=== PATIENT | male | born 1950 | race Caucasian/White ===

== ENCOUNTER 2018-06-13 15:25 | Observation (INO) | payer OTHER ==
[2018-06-13] MEDS ORDERED: ALBUTEROL 2.5 MG/3 ML NEB SOL ONE (15:44)
[2018-06-13] MEDS ORDERED: IPRATROPIUM BROM 0.5MG/2.5ML ONE (15:44)
[2018-06-13 15:46] LABS: Absolute Lymphocytes (CBC) 1.8 K/uL (0.7-4.9); Absolute Monocytes 0.8 K/uL (0.1-1.3); Absolute Neutrophil 4.2 K/uL (1.8-8.0); Basophils % 0.7 % (0-1.3); Eosinophils % 10.3 % (0-4.4); Hematocrit 42.7 % (39.6-49.0); Lymphocytes % 23.8 % (15.3-44.8); MPV 10.2 fL (7.6-11.3); Monocytes % 10.3 % (3.3-12.3); RBC Red Blood Cell Count 4.71 M/uL (4.33-5.43)
[2018-06-13 15:50] LABS: Protime INR 1.03
--- NOTE | 2018-06-13 16:05 | RAD REPORT ---
EXAM DESCRIPTION: CT - Head Brain Wo Cont - 06/13/2018 3:51 pm CLINICAL HISTORY: SYNCOPE Drowsiness, syncope COMPARISON: No comparisons TECHNIQUE: All CT scans are performed using dose optimization technique as appropriate and may inclu de automated exposure control or mA/KV adjustment according to patient size. FINDINGS: No intracranial hemorrhage, hydrocephalus or extra-axial fluid collection.No areas of brai n edema or evidence of midline shift. The paranasal sinuses and mastoids are clear. The calvarium is intact. IMPRESSION: No acute intracranial abnormality.
[2018-06-13 16:08] LABS: ALT/SGPT 28 U/L (12-78); AST/SGOT 15 U/L (15-37); Albumin 3.9 g/dL (3.4-5.0); Alkaline Phosphatase 63 U/L (45-117); BUN Blood Urea Nitrogen 20 mg/dL (7-18); Bicarbonate 28 mmol/L (21-32); Bilirubin Direct 0.1 mg/dL (0-0.2); Bilirubin Total 0.6 mg/dL (0.2-1.0); Glucose Level 96 mg/dL (74-106); Magnesium 2.2 mg/dL (1.8-2.4); NT PRO-BNP 124 pg/mL (<125); Potassium 3.8 mmol/L (3.5-5.1); Protein, Total 7.2 g/dL (6.4-8.2); Sodium Level 143 mmol/L (136-145); Troponin (Emerg Dept Use Only) < 0.02 ng/mL (0.0-0.045)
--- NOTE | 2018-06-13 16:19 | RAD REPORT ---
EXAM DESCRIPTION: RAD - Chest Single View - 06/13/2018 4:03 pm CLINICAL HISTORY: syncope Chest pain. COMPARISON: No comparisons FINDINGS: Portable technique limits examination quality. The lungs are grossly clear. The heart is normal in size. No displaced fractures. IMPRESSION: No acute intrathoracic process suspected.
--- NOTE | 2018-06-13 17:07 | EKG ---
Test Date: 2018-06-13 Test Time: 15:57:31 Hay Stacker: KARMA MEASUREMENT RESULTS: Intervals: Rate: 76 CO: 142 QRSD: 90 QT: 402 QTc: 452 [place]: P: 34 CO: 142 QRS: -21 T: 62 INTERPRETIVE STATEMENTS: Normal sinus rhythm Nonspecific ST and T wave abnormality Abnormal ECG No previous ECG available for comparison Electronically Signed On 06-13-18 17:06:40 HELPER/DRIVER by Pete Hyde
[2018-06-13] MEDS ORDERED: HYDROCODONE/CHLORPHEN 5 ML/OSYR ONE (18:21)
[2018-06-13] MEDS ORDERED: NA CHLORIDE 0.9% 500 ML ONE (18:21)
[2018-06-13] MEDS ORDERED: METHYLPREDNISOLONE 125 MG INJ ONE (18:21)
--- NOTE | 2018-06-13 18:57 | EDPHYS ---
Physician Documentation [facility] Name: Sammy Baez Age: 67 yrs Sex: Male : 1950 Arrival Date: 06/13/2018 Time: 15:26 Bed 4 Private MD: ED Physician Marley Calderon HPI: 06/13 15:35 This 67 yrs old Male presents to ER via EMS with complaints of Syncope. cp 15:35 The patient has experienced syncope, collapsed, lost consciousness. Duration: This was cp a single episode. Associated injury: The patient did not suffer any apparent associated injury. Associated signs and symptoms: Pertinent positives: cough. Current symptoms: Currently, the patient is not experiencing any symptoms, the patient feels back to baseline. 15:35 [facility]. Patient then reports cp waking up seated in chair. Historical: - Allergies: 15:36 No Known Allergies; aj - Home Meds: 15:36 Albuterol Inhl [Active]; allopurinol 100 mg Oral tab 1 tab once daily [Active]; aj budesonide 3 mg oral CECX 2 caps once daily [Active]; cetirizine 10 mg oral tab 1 tab once daily [Active]; clobetasol 0.05 % Topical crea 2 times per day [Active]; desonide 0.05 % Topical lotn 3 times per day [Active]; finasteride 5 mg oral tab 1 tab once daily [Active]; fluticasone inhalation inhalation [Active]; losartan 50 mg oral tab 1 tab once daily [Active]; montelukast 10 mg oral tab 1 tab once daily [Active]; omeprazole 20 mg Oral cpDR 1 cap once daily [Active]; prazosin 2 mg Oral cap 2 caps nightly [Active]; ropinirole 1 mg oral tab 1 tab [Active]; simvastatin 20 mg Oral tab 1 tab once daily [Active]; tamsulosin 0.4 mg oral cp24 1 cap once daily [Active]; terbinafine HCl 1 % topical crea once daily [Active]; trazodone 100 mg Oral tab nightly [Active]; venlafaxine 75 mg oral tr24 2 tabs twice a day [Active]; aspirin 81 mg Oral chew 1 tab once daily [Active]; - PMHx: 15:36 Asthma; GERD; Hypertension; Gout; BPH; Restless Legs; Hyperlipidemia; Arthritis; Sleep aj Apnea; - PSHx: 15:36 Hernia repair; Carpal Tunnel Repair; aj - Immunization history:: Adult Immunizations up to date. - Social history:: Smoking status: Patient/guardian denies using tobacco. - Ebola Screening: : Patient negative for fever greater than or equal to 101.5 degrees Fahrenheit, and additional compatible Ebola Virus Disease symptoms Patient denies exposure to infectious person Patient denies travel to an Ebola-affected area in the 21 days before illness onset No symptoms or risks identified at this time. ROS: 15:40 Constitutional: Negative for body aches, fever, poor PO intake, weight loss. cp 15:40 Eyes: Negative for injury, pain, redness, and discharge. cp 15:40 ENT: Negative for drainage from ear(s), ear pain, sore throat, difficulty swallowing, difficulty handling secretions. 15:40 Cardiovascular: Negative for chest pain, edema, palpitations. 15:40 Respiratory: Positive for cough, wheezing, expiratory, Negative for hemoptysis, shortness of breath. 15:40 Abdomen/GI: Negative for abdominal pain, nausea, vomiting, and diarrhea, constipation, black/tarry stool, rectal bleeding. 15:40 Back: Negative for pain at rest, pain with movement. 15:40 Skin: Negative for cellulitis, diaphoresis, rash. 15:40 Neuro: Positive for headache, syncope, Negative for altered mental status, dizziness, weakness. 15:40 All other systems are negative. Exam: 15:45 Constitutional: The patient appears in no acute distress, alert, awake, cp non-diaphoretic, non-toxic, well developed, well nourished. 15:45 Head/Face: Normocephalic, atraumatic. Eyes: Pupils equal round and reactive to light, cp extra-ocular motions intact. Lids and lashes normal. Conjunctiva and sclera are non-icteric and not injected. Cornea within normal limits. Periorbital areas with no swelling, redness, or edema. ENT: Nares patent. No nasal discharge, no septal abnormalities noted. Tympanic membranes are normal and external auditory canals are clear. Oropharynx with no redness, swelling, or masses, exudates, or evidence of obstruction, uvula midline. Mucous membranes moist. Neck: Trachea midline, no thyromegaly or masses palpated, and no cervical lymphadenopathy. Supple, full range of motion without nuchal rigidity, or vertebral point tenderness. No Meningismus. Chest/axilla: Normal chest wall appearance and motion. Nontender with no deformity. No lesions are appreciated. 15:45 Cardiovascular: Rate: normal, Rhythm: regular, Pulses: Pulses are 2+ in right radial artery and left radial artery. Heart sounds: murmur, not appreciated, rub, not appreciated, gallop, not appreciated, Edema: is not appreciated, JVD: is not appreciated. 15:45 Respiratory: the patient does not display signs of respiratory distress, Respirations: normal, no use of accessory muscles, no retractions, no splinting, no tachypnea, Breath sounds: decreased breath sounds, are not appreciated, stridor, is not appreciated, wheezing: expiratory that is mild, is heard diffusely. 15:45 Abdomen/GI: Inspection: abdomen appears normal, Bowel sounds: active, all quadrants, Palpation: abdomen is soft and non-tender, in all quadrants. 15:45 Back: pain, is absent, ROM is normal. cp 15:45 Skin: cellulitis, is not appreciated, no rash present. cp 15:45 Neuro: Orientation: to person, place \T\ time. Mentation: is normal, Cerebellar function: is grossly normal, Motor: moves all fours, strength is normal, Sensation: is normal. 16:08 ECG was reviewed by the Attending Physician. cp Vital Signs: 15:36 BP 151 / 83; Pulse 71; Resp 15; Temp 98.0(O); Pulse Ox 97% on R/A; Weight 104.33 kg; aj Height 5 ft. 9 in. (175.26 cm); 16:46 BP 146 / 74; Pulse 75; Resp 24; Pulse Ox 97% ; aj 17:39 BP 158 / 73 Supine; Pulse 73; aj 17:41 BP 159 / 80 Sitting; Pulse 79; aj 17:43 BP 156 / 84 Standing; Pulse 81; aj 19:33 BP 152 / 75; Pulse 75; Resp 20; Pulse Ox 96% ; Pain 0/10; ao 20:40 BP 147 / 77; Pulse 77; Resp 24; Pulse Ox 94% on R/A; Pain 0/10; ao 15:36 Body Mass Index 33.96 (104.33 kg, 175.26 cm) aj MDM: 15:27 Patient medically screened. 16:00 Differential Diagnosis: cardiac arrhythmia, cerebrovascular accident, drug effect, GI cp bleed, seizure, transient ischemic attack, vasovagal episode. 16:45 Data reviewed: vital signs, nurses notes, lab test result(s), EKG, radiologic studies, cp plain films. 18:45 Test interpretation: by ED physician or midlevel provider: ECG, plain radiologic cp studies. 18:55 Physician consultation: Marley Day MD was called at 18:52, was contacted at 18:52, cp regarding admission, to the telemetry unit. patient's condition. 06/13 15:32 Order name: Basic Metabolic Panel; Complete Time: 16:16 06/13 16:16 Interpretation: Normal except: CL 108; BUN 20; GFR 65. 06/13 15:32 Order name: CBC with Diff; Complete Time: 16:02 06/13 16:02 Interpretation: Normal except: EOSINOPHIL % 10.3; EOSA 0.8. 06/13 15:32 Order name: LFT's; Complete Time: 16:16 06/13 15:32 Order name: Magnesium; Complete Time: 16:16 06/13 15:32 Order name: NT PRO-BNP; Complete Time: 16:16 06/13 15:32 Order name: PT-INR; Complete Time: 16:16 06/13 15:32 Order name: Troponin (emerg Dept Use Only); Complete Time: 16:16 06/13 16:17 Interpretation: TROPED < 0.02; Reviewed. 06/13 20:16 Order name: CBC with Automated Diff [facility] 06/13 20:16 Order name: CBC with Automated Diff [facility] 06/13 20:16 Order name: Comprehensive Metabolic Panel [facility] 06/13 20:16 Order name: Comprehensive Metabolic Panel [facility] 06/13 20:16 Order name: Lipid Profile [facility] 06/13 20:16 Order name: Lipid Profile [facility] 06/13 20:16 Order name: Troponin I [facility] 06/13 15:32 Order name: Orthostatics; Complete Time: 17:46 06/13 15:32 Order name: CT Head Brain wo Cont; Complete Time: 16:16 06/13 16:17 Interpretation: Report reviewed. 06/13 15:32 Order name: XRAY Chest (1 view); Complete Time: 16:31 cp 06/13 16:31 Interpretation: Report review. 06/13 15:32 Order name: EKG; Complete Time: 15:33 cp 06/13 15:32 Order name: Cardiac monitoring; Complete Time: 15:51 cp 06/13 15:32 Order name: EKG - Nurse/Tech; Complete Time: 15:51 cp 06/13 20:16 Order name: CONS Pharmacy Consult [facility] 06/13 20:16 Order name: Heart Healthy [facility] 06/13 20:16 Order name: Troponin I [facility] 06/13 20:16 Order name: Troponin I [facility] 06/13 20:17 Order name: Echo with Doppler [facility] 06/13 20:17 Order name: Carotid Artery Bilateral [facility] 06/13 15:32 Order name: IV Saline Lock; Complete Time: 15:45 cp 06/13 15:32 Order name: Labs collected and sent; Complete Time: 15:45 06/13 15:32 Order name: O2 Per Protocol; Complete Time: 15:45 06/13 15:32 Order name: O2 Sat Monitoring; Complete Time: 15:45 cp EC:08 Rate is 76 beats/min. Rhythm is regular. TX interval is normal. QRS interval is normal. cp QT interval is normal. Interpreted by me. Reviewed by me. Administered Medications: 15:40 Drug: Albuterol - atroVENT (3:1) (2.5 mg - 0.5 mg) 3 ml Route: Nebulizer; jl7 17:45 Follow up: Response: No adverse reaction; Wheezing diminished aj 19:30 Follow up: Response: No adverse reaction ao 18:15 Drug: SOLU-Medrol 125 mg Route: IVP; Site: left antecubital; aj 19:30 Follow up: Response: No adverse reaction ao 18:15 Drug: Tussionex Pennkinetic ER 5 ml Route: PO; aj 19:30 Follow up: Response: No adverse reaction ao 18:16 Drug: NS 0.9% 500 ml Route: IV; Rate: bolus; Site: left antecubital; aj 19:30 Follow up: IV Status: Completed infusion; IV Intake: 500ml ao Point of Care Testing: Blood Glucose: 15:36 Blood Glucose: 99 mg/dL; aj Ranges: Critical Glucose Levels:Adult <50 mg/dl or >400 mg/dl <40 mg/dl or >180 mg/dl Disposition: 06/14 18:47 Co-signature as Attending Physician, Marley Calderon MD. ma2 Disposition: 06/13/18 18:56 Hospitalization ordered by Marley Day for Observation. Preliminary diagnosis are Syncope and collapse, Cough. - Bed requested for Telemetry/MedSurg (observation). - Status is Observation. ao - Condition is Stable. - Problem is new. - Symptoms have improved. UTI on Admission? No Signatures: Dispatcher [employer] EDMS Liv Fletcher RN RN Kole Chacko PA PA cp Garcia, Cindy, RN RN cg Jaime High RN RN Jessica Colon RN RN jl7 Marley Calderon MD MD ma2 Corrections: (The following items were deleted from the chart) 06/13 16:02 16:02 Normal except: EOSINOPHIL % 10.3. cp cp 20:38 18:56 Hospitalization Ordered by Marley Day MD for Observation. Preliminary cg diagnosis is Syncope and collapse; Cough. Bed requested for Telemetry/MedSurg (observation). Status is Observation. Condition is Stable. Problem is new. Symptoms have improved. UTI on Admission? No. cp 21:36 20:38 06/13/2018 18:56 Hospitalization Ordered by Marley Day MD for Observation. ao Preliminary diagnosis is Syncope and collapse; Cough. Bed requested for Telemetry/MedSurg (observation). Status is Observation. Condition is Stable. Problem is new. Symptoms have improved. UTI on Admission? No. cg
--- NOTE | 2018-06-13 18:57 | ER ---
Nurse's Notes [facility] Name: Sammy Baez Age: 67 yrs Sex: Male : 1950 Arrival Date: 06/13/2018 Time: 15:26 Bed 4 Private MD: Diagnosis: Syncope and collapse;Cough Presentation: 06/13 15:26 Presenting complaint: Patient states: Reports syncopal episode today while coughing. aj Sent from [place]. Transition of care: patient was not received from another setting of care. Onset of symptoms was June 13, 2018. Risk Assessment: Do you want to hurt yourself or someone else? Patient reports no desire to harm self or others. Initial Sepsis Screen: Does the patient meet any 2 criteria? No. Patient's initial sepsis screen is negative. Does the patient have a suspected source of infection? No. Patient's initial sepsis screen is negative. Care prior to arrival: None. 15:26 Method Of Arrival: EMS: [facility] 15:26 Acuity: ANNA MARIE 3 aj Triage Assessment: 15:36 General: Appears in no apparent distress. comfortable, Behavior is calm, cooperative, aj appropriate for age. Pain: Denies pain. Neuro: Level of Consciousness is awake, alert, obeys commands, Oriented to person, place, time, situation, Appropriate for age Reports a syncopal episode. Respiratory: Reports cough that is Airway is patent Respiratory effort is even, unlabored, Respiratory pattern is regular, symmetrical, Breath sounds with wheezes bilaterally. Derm: Skin is intact, is healthy with good turgor, Skin is pink, warm \T\ dry. normal. Historical: - Allergies: 15:36 No Known Allergies; aj - Home Meds: 15:36 Albuterol Inhl [Active]; allopurinol 100 mg Oral tab 1 tab once daily [Active]; aj budesonide 3 mg oral CECX 2 caps once daily [Active]; cetirizine 10 mg oral tab 1 tab once daily [Active]; clobetasol 0.05 % Topical crea 2 times per day [Active]; desonide 0.05 % Topical lotn 3 times per day [Active]; finasteride 5 mg oral tab 1 tab once daily [Active]; fluticasone inhalation inhalation [Active]; losartan 50 mg oral tab 1 tab once daily [Active]; montelukast 10 mg oral tab 1 tab once daily [Active]; omeprazole 20 mg Oral cpDR 1 cap once daily [Active]; prazosin 2 mg Oral cap 2 caps nightly [Active]; ropinirole 1 mg oral tab 1 tab [Active]; simvastatin 20 mg Oral tab 1 tab once daily [Active]; tamsulosin 0.4 mg oral cp24 1 cap once daily [Active]; terbinafine HCl 1 % topical crea once daily [Active]; trazodone 100 mg Oral tab nightly [Active]; venlafaxine 75 mg oral tr24 2 tabs twice a day [Active]; aspirin 81 mg Oral chew 1 tab once daily [Active]; - PMHx: 15:36 Asthma; GERD; Hypertension; Gout; BPH; Restless Legs; Hyperlipidemia; Arthritis; Sleep aj Apnea; - PSHx: 15:36 Hernia repair; Carpal Tunnel Repair; aj - Immunization history:: Adult Immunizations up to date. - Social history:: Smoking status: Patient/guardian denies using tobacco. - Ebola Screening: : Patient negative for fever greater than or equal to 101.5 degrees Fahrenheit, and additional compatible Ebola Virus Disease symptoms Patient denies exposure to infectious person Patient denies travel to an Ebola-affected area in the 21 days before illness onset No symptoms or risks identified at this time. Screenin:47 Abuse screen: Denies threats or abuse. Denies injuries from another. Nutritional aj screening: No deficits noted. Tuberculosis screening: No symptoms or risk factors identified. Fall Risk None identified. Assessment: 15:38 Reassessment: See triage. aj 16:47 Reassessment: Patient appears in no apparent distress at this time. No changes from aj previously documented assessment. Patient and/or family updated on plan of care and expected duration. Pain level reassessed. Patient is alert, oriented x 3, equal unlabored respirations, skin warm/dry/pink. Patient states feeling better. Patient states symptoms have improved. 17:46 Reassessment: Patient appears in no apparent distress at this time. No changes from aj previously documented assessment. Patient and/or family updated on plan of care and expected duration. Pain level reassessed. Patient is alert, oriented x 3, equal unlabored respirations, skin warm/dry/pink. Patient denies pain at this time. Patient states feeling better. Patient states symptoms have improved. Neuro: No deficits noted. Cardiovascular: No deficits noted. 19:25 General: Appears in no apparent distress. comfortable, Behavior is calm, cooperative, ao appropriate for age. 21:33 Neuro: Level of Consciousness is awake, alert, Oriented to person, place, time, ao situation, none. Cardiovascular: Rhythm is regular. Vital Signs: 15:36 BP 151 / 83; Pulse 71; Resp 15; Temp 98.0(O); Pulse Ox 97% on R/A; Weight 104.33 kg; aj Height 5 ft. 9 in. (175.26 cm); 16:46 BP 146 / 74; Pulse 75; Resp 24; Pulse Ox 97% ; aj 17:39 BP 158 / 73 Supine; Pulse 73; aj 17:41 BP 159 / 80 Sitting; Pulse 79; aj 17:43 BP 156 / 84 Standing; Pulse 81; aj 19:33 BP 152 / 75; Pulse 75; Resp 20; Pulse Ox 96% ; Pain 0/10; ao 20:40 BP 147 / 77; Pulse 77; Resp 24; Pulse Ox 94% on R/A; Pain 0/10; ao 15:36 Body Mass Index 33.96 (104.33 kg, 175.26 cm) aj ED Course: 15:26 Patient arrived in ED. aj 15:27 Kole Bernardo PA is PHCP. cp 15:27 Marley Calderon MD is Attending Physician. cp 15:28 Triage completed. aj 15:36 Arm band placed on left wrist. Patient placed in an exam room, on a stretcher, on teletypesetter monitor, on pulse oximetry. 15:45 Liv Fletcher, RN is Primary Nurse. aj 15:50 Bed in low position. Call light in reach. Side rails up X 1. Side rails up X2. Warm jp3 blanket given. Pillow given. quality assurance monitor chassis on. Pulse ox on. NIBP on. 15:51 CT completed. Patient tolerated procedure well. Patient moved to CT via stretcher. sj Patient moved back from CT. 15:51 CT Head Brain wo Cont In Process Unspecified. EDMS 16:03 XRAY Chest (1 view) In Process Unspecified. EDMS 16:18 EKG done, by technician terminal and repeater. reviewed by Kole SWANSON. dt2 16:50 attempted transfer to [facility], per pt request. bd 18:07 attempted transfer to [facility]. bd 18:56 Marley Day MD is Hospitalizing Provider. cp 18:56 attempted to call [facility] at [phone] ext [phone], no one answered the phone. bd 21:32 No provider procedures requiring assistance completed. Patient admitted, IV remains in ao place. Administered Medications: 15:40 Drug: Albuterol - atroVENT (3:1) (2.5 mg - 0.5 mg) 3 ml Route: Nebulizer; jl7 17:45 Follow up: Response: No adverse reaction; Wheezing diminished aj 19:30 Follow up: Response: No adverse reaction ao 18:15 Drug: SOLU-Medrol 125 mg Route: IVP; Site: left antecubital; aj 19:30 Follow up: Response: No adverse reaction ao 18:15 Drug: Tussionex Pennkinetic ER 5 ml Route: PO; aj 19:30 Follow up: Response: No adverse reaction ao 18:16 Drug: NS 0.9% 500 ml Route: IV; Rate: bolus; Site: left antecubital; aj 19:30 Follow up: IV Status: Completed infusion; IV Intake: 500ml ao Point of Care Testing: Blood Glucose: 15:36 Blood Glucose: 99 mg/dL; aj Ranges: Intake: 19:30 IV: 500ml; Total: 500ml. ao Outcome: 18:56 Decision to Hospitalize by Provider. cp 21:33 Admitted to Med/surg accompanied by tech, room 426, with chart, Report called to erika Guaman RN 21:33 Condition: stable 21:33 Instructed on the need for admit. 21:36 Patient left the ED. ao Signatures: Dispatcher [employer] EDMS Miya Noble Amanda RN Savita Donald Corey, PA PA cp Ortiz, Alex RN RN Jessica Colon RN RN Amy Zepeda Jacob jp3 Corrections: (The following items were deleted from the chart) 16:09 16:08 Bed in low position. Call light in reach. Side rails up X 1. Side rails up X2. [id number] 16:09 16:08 Warm blanket given. Pillow given. jp3 jp3 16:09 16:08 quality assurance monitor chassis on. Pulse ox on. NIBP on. jp3 jp3 21:36 21:33 Discharged to home ambulatory, ao ao
[2018-06-13] MEDS ORDERED: MORPHINE 2 MG/ML SYR IV PRN (20:13)
[2018-06-13] MEDS ORDERED: ACETAMINOPHEN 500 MG TAB PO PRN (20:13)
[2018-06-13] MEDS ORDERED: ONDANSETRON 4 MG/2 ML VIAL IV PRN (20:13)
[2018-06-13] MEDS: NA CHLORIDE 0.9% 1,000 ML IV SCH (21:00)
[2018-06-13] MEDS ORDERED: ATORVASTATIN 20 MG TAB PO SCH (21:00)
[2018-06-13] MEDS ORDERED: NA CHLORIDE 0.9% 1,000 ML ONE (21:27)
--- NOTE | 2018-06-13 22:12 | RAD REPORT ---
EXAM DESCRIPTION: US - CP - 06/13/2018 9:18 pm CLINICAL HISTORY: Syncope COMPARISON: None. TECHNIQUE: Real-time sonographic evaluation of both carotid systems was performed. Solo scale and Do ppler interrogation were performed with waveform tracing bilaterally. FINDINGS: Normal high resistance waveforms are noted in both external carotid arteries. The common c arotid arteries and internal carotid arteries show normal low resistance waveforms. No significant plaque formation is seen. Peak systolic and end diastolic velocity values and the ICA/ CCA ratios are in the non-hemodynamically significant range. Antegrade flow seen in both vertebral arteries. Velocity values and ratios were recorded and are retained in the patient's imaging records. IMPRESSION: No significant atherosclerotic changes noted. No evidence of a hemodynamically significant stenosis.
[2018-06-13 22:33] VITALS: O2SAT 94
[2018-06-13 22:40] VITALS: BMI 35.0
[2018-06-14] MEDS: GUAIFENESIN/CODEINE 5ML UCUP PO PRN ×2 (01:25→13:03)
[2018-06-14 04:18] LABS: Absolute Lymphocytes (CBC) 0.6 K/uL (0.7-4.9); Absolute Neutrophil 6.9 K/uL (1.8-8.0); Basophils % 2.8 % (0-1.3); Eosinophils % 0.3 % (0-4.4); Hematocrit 41.5 % (39.6-49.0); Lymphocytes % 7.7 % (15.3-44.8); Monocytes % 0.6 % (3.3-12.3); RBC Red Blood Cell Count 4.56 M/uL (4.33-5.43)
[2018-06-14 04:36] LABS: ALT/SGPT 30 U/L (12-78); AST/SGOT 16 U/L (15-37); Albumin 3.6 g/dL (3.4-5.0); Alkaline Phosphatase 57 U/L (45-117); BUN Blood Urea Nitrogen 23 mg/dL (7-18); Bicarbonate 26 mmol/L (21-32); Bilirubin Total 0.6 mg/dL (0.2-1.0); Glucose Level 188 mg/dL (74-106); HDL Cholesterol 51 mg/dL (40-60); LDL Cholesterol, Calculated 121 (<130); Potassium 4.6 mmol/L (3.5-5.1); Protein, Total 6.9 g/dL (6.4-8.2); Sodium Level 142 mmol/L (136-145); Troponin I < 0.02 ng/mL (0.0-0.045)
[2018-06-14 05:21] LABS: Blood Morphology Comment NOT SEEN (NOT SEEN); Platelet Estimate ADEQ
[2018-06-14] MEDS ORDERED: TRAZODONE 50 MG TABLET PO PRN (05:56)
[2018-06-14] MEDS: NA CHLORIDE 0.9% 1,000 ML IV SCH (07:00)
[2018-06-14] MEDS ORDERED: MORPHINE 4 MG/ML SYR IV PRN (07:13)
[2018-06-14 07:57] LABS: Urine Appearance CLEAR; Urine Bilirubin NEGATIVE (NEG); Urine Blood NEGATIVE (NEG); Urine Color YELLOW; Urine Glucose NEGATIVE (NEG); Urine Protein NEGATIVE (NEG); Urine Specific Gravity >=1.030 (1.005-1.030); Urine pH 6.5 (5.0-7.0)
[2018-06-14 07:58] LABS: Urine Microscopic Reflex NO UMIC
[2018-06-14] MEDS ORDERED: MONTELUKAST 10 MG TAB PO SCH (09:00)
[2018-06-14] MEDS ORDERED: HOME MED 1 EA UNK (Venlafaxine Hcl [Venlafaxine Hcl Er] 150 MG) PO SCH (09:00)
[2018-06-14] MEDS ORDERED: VENLAFAXINE HCL 75 MG TABLET PO SCH (09:00)
[2018-06-14] MEDS ORDERED: TAMSULOSIN 0.4 MG SR CAP PO SCH (09:00)
[2018-06-14] MEDS ORDERED: ASPIRIN EC 81 MG TAB PO SCH (09:00)
--- NOTE | 2018-06-14 09:42 | ECHO ---
HEIGHT: 5 ft 8 in WEIGHT: 230 lb 8 oz DATE OF STUDY: 06/14/[address]: Marley Day MD 2-DIMENSIONAL: YES M.MODE: YES DOPPLER: YES COLOR FLOW: YES TDS: NO PORTABLE: NO DEFINITY: NO BUBBLE STUDY: NO DIAGNOSIS: SYNCOPE CARDIAC HISTORY: CATHERIZATION: SURGERY: PROSTHETIC VALVE: PACEMAKER: MEASUREMENTS (cm) DIASTOLIC (NORMALS) SYSTOLIC (NORMALS) IVSd 1.2 (0.6-1.2) LA Diam (1.9-4.0) LVEF 70% LVIDd 4.5 (3.5-5.7) LVIDs 2.7 (2.0-3.5) %FS 39% LVPWd 1.3 (0.6-1.2) Ao Diam 3.2 (2.0-3.7) 2 DIMENSIONAL ASSESSMENT: RIGHT ATRIUM: NORMAL LEFT ATRIUM: NORMAL RIGHT VENTRICLE: NORMAL LEFT VENTRICLE: LEFT VENTRICULAR HYPERTROPHY TRICUSPID VALVE: NORMAL MITRAL VALVE: NORMAL PULMONIC VALVE: NORMAL AORTIC VALVE: MILD SCLEROSIS PERICARDIAL EFFUSION: NONE AORTIC ROOT: NORMAL LEFT VENTRICULAR WALL MOTION: NORMAL DOPPLER/COLOR FLOW: NO AORTIC STENOSIS. MILD AORTIC REGURGITATION. COMMENTS: NORMAL LEFT EJECTION FRACTION. MILD LEFT VENTRICULAR HYPERTROPHY. MILD AORTIC SCLEROSIS WITH NO AORTIC STENOSIS. MILD AORTIC REGURGITATION. TECHNOLOGIST: Bernabe JOSHI
--- NOTE | 2018-06-14 11:45 | RAD REPORT ---
EXAM DESCRIPTION: MRI - Brain Wo Cont - 06/14/2018 11:04 am CLINICAL HISTORY: Syncope COMPARISON: June 13, 2017 TECHNIQUE: Axial, sagittal, and coronal magnetic images of the brain were obtained. Contrast was not requested FINDINGS: A few small areas of increased signal are present within periventricular, deep and subcort ical white matter bilaterally Mild cerebellar tonsillar ectopia is present Diffusion-weighted/ADC mapping does not reveal evidence of acute infarction. The ventricles are normal caliber. An extra-axial fluid collection is not present Fluid within the sinuses/mastoids is not noted IMPRESSION: Mild signal within periventricular, deep and subcortical white matter probably represent ing ischemic changes secondary to small vessel disease Mild cerebellar tonsillar ectopia
--- NOTE | 2018-06-14 12:27 | P.HP ---
Certification for Inpatient Patient admitted to: Observation With expected LOS: <2 Midnights Patient will require the following post-hospital care: None Practitioner: I am a practitioner with admitting privileges, knowledge of patient current condition, hospital course, and medical plan of care. Services: Services provided to patient in accordance with Admission requirements found in Title 42 Section 412.3 of the Code of Federal Regulations Patient History Date of Service: 06/13/18 Reason for admission: SYNCOPE AND COLLAPSE History of Present Illness: PATIENT IS A 67-YEAR-OLD GENTLEMAN WHO CAME TO THE HOSPITAL WITH A SYNCOPAL EVENT. PATIENT WAS COUGHING AND BECAME SYNCOPAL AND COLLAPSE. PATIENT WAS BROUGHT INTO THE HOSPITAL FOR FURTHER EVALUATION. THIS HAS BEEN GOING ON FOR QUITE A WHILE. PATIENT HAS NOT HAD ANY WORKUP IN THE PAST FOR GUARDING THIS. THEY BROUGHT HIM INTO THE EMERGENCY ROOM AND A CT OF THE HEAD WAS NEGATIVE. NO SIGNS OF ANY ARRHYTHMIAS. PATIENT WILL NEED TO BE ADMITTED TO THE HOSPITAL FOR FURTHER EVALUATION. Allergies No Known Allergies Allergy (Unverified 06/13/18 21:01) Home Medications: Montelukast [Singulair] 10 mg PO DAILY 06/13/18 Omeprazole 20 mg PO DAILYPRN PRN 06/13/18 Simvastatin 20 mg PO DAILY 06/13/18 Tamsulosin HCl 0.4 mg PO DAILY 06/13/18 Trazodone HCl 50 mg PO BEDTIME PRN PRN 06/13/18 Venlafaxine HCl [Venlafaxine HCl ER] 150 mg PO BID 06/13/18 - Past Medical/Surgical History Has patient received pneumonia vaccine in the past: Yes Diabetic: No -: asthma (as a child) -: gout -: HTN -: HLD -: sleep apnea -: carpal tunnel BERYL hands 2012 - Family History Father Medical History: Cancer Mother Medical History: Diabetes, Other (see notes) Notes: hardening of the arteries - Social History Smoking Status: Never smoker Alcohol use: Yes CD- Drugs: No Caffeine use: Yes Place of Residence: Home Review of Systems 10-point ROS is otherwise unremarkable Physical Examination - Vital Signs Temperature: 98.1 F Blood Pressure: 152/72 Pulse: 95 Respirations: 18 Pulse Ox (%): 92 - Physical Exam General: Alert, In no apparent distress, Oriented x3 HEENT: Atraumatic, PERRLA, Mucous membr. moist/pink, EOMI, Sclerae nonicteric Neck: Supple, 2+ carotid pulse no bruit, No LAD, Without JVD or thyroid abnormality Respiratory: Clear to auscultation bilaterally, Normal air movement Cardiovascular: Regular rate/rhythm, Normal S1 S2, No murmurs Gastrointestinal: Normal bowel sounds, Soft and benign, Non-distended, No tenderness Musculoskeletal: No clubbing, No swelling, No tenderness Integumentary: No rashes Neurological: Normal gait, Normal speech, Normal strength at 5/5 x4 extr, Normal tone, Sensation intact, Cranial nerves 3-12 intact, Normal affect Lymphatics: No axilla or inguinal lymphadenopathy - Studies Laboratory Data (last 24 hrs) 06/13/18 15:35: PT 12.2, INR 1.03 06/13/18 15:35: WBC 7.6, Hgb 14.1, Hct 42.7, Plt Count 188 06/13/18 15:35: Sodium 143, Potassium 3.8, BUN 20 H, Creatinine 1.13, Glucose 96 , Magnesium 2.2, Total Bilirubin 0.6, AST 15, ALT 28, Alkaline Phosphatase 63 Assessment & Plan - Problems (Diagnosis) (1) Syncope and collapse Current Visit: Yes Status: Acute - Plan 1. MRI OF THE BRAIN 2. ECHOCARDIOGRAM AND CAROTID DOPPLER 3. ANTI-PLATELET THERAPY AND STATIN THERAPY 4. CARDIOLOGY CONSULTATION 5. DVT PROPHYLAXIS Discharge Plan: Home Plan to discharge in: 24 Hours - Advance Directives Does patient have a Living Will: No Does patient have a Durable POA for Healthcare: No - Code Status/Comfort Care Code Status Assessed: Yes Code Status: Full Code Critical Care: No Time Spent Managing PTS Care (In Minutes): 45
--- NOTE | 2018-06-14 13:23 | CON ---
CARDIOLOGY CONSULT History Of Present Illness: Mr. Baez is 67. He came to the hospital because of an episode of synco pe. Mr. Baez has had numerous episodes of syncope. They are all clustered around the time when he had a severe pneumonia. Each episode of syncope occurred either when he coughed. He would cough for 30-40 seconds without being able to take a breath in and then lose consciousness, wake up a few j[place] later, that was a couple of years ago, he was hospitalized at [facility]. He underwent a variety of hear t tests and was told that his heart and blood vessels and brain all looked good. He was not actually given a diagnosis of cough syncope. When his pneumonia improved, he seemed to do better. Between t hen and now, he has had a few lightheaded spells, when he laughs too hard and does not take a breath in for 10 seconds or so or when he coughs too hard. Recently, he has been coughing up phlegm, coughi ng more than usual and had an episode of syncope after a prolonged episode of coughing without taking a breath in. He saw the doctors at the [facility] and they sent him to our hospital for further eval uation. Since then, he has had a carotid Doppler that is within normal limits and a brain CAT scan t hat was normal. His EKGs have all looked normal, no arrhythmia and he is not having chest pain. His laboratory exam is negative for elevated troponins or any other abnormalities. The patient chews to bacco and he has been instructed that it would be a very good idea for him to quit. Medications: He takes trazodone, omeprazole, Flomax, Singulair, venlafaxine, and simvastatin. Allergies: HE HAS NO KNOWN ALLERGIES. Social History: Alcohol use minimal. No illegal drugs. Physical Examination: General: 5 feet 8 inches, 230 pounds, obese, alert, oriented, pleasant. Neck: There is no carotid bruit. Lungs: Clear. No wheezing. Heart: Exam within normal limits. Abdomen: Soft. Extremities: Within normal limits. Distal pulses are palpable. His EKG shows nonspecific T-wave flattening, otherwise it is normal. Impression: The patient has cough syncope. He will sometimes cough so long that he cannot take a br eath in, heart shrinks, blood pressure falls. There is no indication for a further workup. An echoc ardiogram and MRI have been ordered. After those are completed, I think he could be discharged home. The best way to treat this condition is give up all tobacco use and seek help from a pulmonary phys ician, so he does not cough. There is no indication for heart cath or stress test or a pacemaker. RICO/ROMERO Voice ID: [id number] Report ID: [id number]
[2018-06-14 13:43] VITALS: BP 168/72; TEMP 98
[2018-06-14] MEDS ORDERED: LEVALBUTEROL 0.63 MG/3 ML NEB NEB SCH (14:00)
[2018-06-14] MEDS ORDERED: IPRATROPIUM BROM 0.5MG/2.5ML NEB SCH (14:00)
--- NOTE | 2018-06-14 16:10 | P.SSS ---
Patient History Date of Service: 06/14/18 Reason for admission: SYNCOPE AND COLLAPSE History of Present Illness: PATIENT IS A 67-YEAR-OLD GENTLEMAN WHO CAME TO THE HOSPITAL WITH A SYNCOPAL EVENT. PATIENT WAS COUGHING AND BECAME SYNCOPAL AND COLLAPSE. PATIENT WAS BROUGHT INTO THE HOSPITAL FOR FURTHER EVALUATION. THIS HAS BEEN GOING ON FOR QUITE A WHILE. PATIENT HAS NOT HAD ANY WORKUP IN THE PAST FOR GUARDING THIS. THEY BROUGHT HIM INTO THE EMERGENCY ROOM AND A CT OF THE HEAD WAS NEGATIVE. NO SIGNS OF ANY ARRHYTHMIAS. PATIENT WILL NEED TO BE ADMITTED TO THE HOSPITAL FOR FURTHER EVALUATION. Allergies No Known Allergies Allergy (Unverified 06/13/18 21:01) Home Medications: Montelukast [Singulair] 10 mg PO DAILY 06/13/18 Omeprazole 20 mg PO DAILYPRN PRN 06/13/18 Simvastatin 20 mg PO DAILY 06/13/18 Tamsulosin HCl 0.4 mg PO DAILY 06/13/18 Trazodone HCl 50 mg PO BEDTIME PRN PRN 06/13/18 Venlafaxine HCl [Venlafaxine HCl ER] 150 mg PO BID 06/13/18 - Past Medical/Surgical History Has patient received pneumonia vaccine in the past: Yes Diabetic: No -: asthma (as a child) -: gout -: HTN -: HLD -: sleep apnea -: carpal tunnel BERYL hands 2012 - Family History Father -: Cancer Mother -: Diabetes, Other (see notes) Notes: hardening of the arteries - Social History Smoking Status: Never smoker Alcohol use: Yes CD- Drugs: No Caffeine use: Yes Place of Residence: Home Review of Systems 10-point ROS is otherwise unremarkable Physical Examination - Vital Signs Temperature: 98 F Blood Pressure: 168/72 Pulse: 91 Respirations: 18 Pulse Ox (%): 92 - Physical Exam General: Alert, In no apparent distress HEENT: Atraumatic, PERRLA, Mucous membr. moist/pink, EOMI, Sclerae nonicteric Neck: Supple, 2+ carotid pulse no bruit, No LAD, Without JVD or thyroid abnormality Respiratory: Clear to auscultation bilaterally, Normal air movement Cardiovascular: Regular rate/rhythm, Normal S1 S2 Gastrointestinal: Normal bowel sounds, No tenderness Musculoskeletal: No tenderness Integumentary: No rashes Neurological: Normal gait, Normal speech, Normal strength at 5/5 x4 extr, Normal tone, Normal affect Lymphatics: No axilla or inguinal lymphadenopathy - Studies Laboratory Data (last 24 hrs) 06/13/18 15:35: Sodium 143, Potassium 3.8, BUN 20 H, Creatinine 1.13, Glucose 96 , Magnesium 2.2, Total Bilirubin 0.6, AST 15, ALT 28, Alkaline Phosphatase 63 - Diagnosis (Problem(s)) (1) Syncope Status: Acute Qualifiers: Syncope type: vasovagal syncope Qualified Code(s): R55 - Syncope and collapse (2) Morbid obesity Status: Chronic (3) Reactive airway disease Status: Chronic Qualifiers: Asthma severity: mild Asthma persistence: persistent Asthma complication type: with acute exacerbation Qualified Code(s): J45.31 - Mild persistent asthma with (acute) exacerbation (4) LYNETTE (obstructive sleep apnea) Status: Chronic Treatment Summary: Overall during the hospital stay patient main stable The patient was initially admitted to the hospital for syncopal episode. Had syncopal workup done here in the hospital including a head CT brain MRI, carotid Doppler which were all within normal limits. Patient syncopal episode was most likely secondary to vasovagal event secondary to coughing spell. Patient has reactive airway disease which she does not get treatment for this time. Patient does not take any inhalers at home. Patient was treated with duo nebs while here in the hospital had marked improvement in his symptoms and cough. Once patient was able to ambulate was tolerating his diet and had no further syncopal episode he was discharged home under stable condition was asked to follow up with primary care doctor along with the roving court reporter. Patient demonstrated understanding and thus was discharged home under stable condition - Disposition Disposition: ROUTINE DISCHARGE Condition: GOOD Diet: Regular Activity: Ad luis
[2018-06-14] MEDS ORDERED: ENOXAPARIN 30 MG/0.3 ML SQ SCH (17:00)
[2018-06-14] MEDS ORDERED: ATORVASTATIN 10 MG TAB PO SCH (21:00)
[2018-06-15] MEDS ORDERED: PANTOPRAZOLE 40MG TABLET PO PRN (06:30)
== END 2018-06-14 14:31 | disposition home or self-care (01) ==
LOC: ER 15:25 → ERHOLD 20:25 → 4TH 21:22
PROVIDERS: ADMIT Hospitalist; ATTEND Hospitalist
DX: R55 Syncope and collapse (principal); I10 Essential (primary) hypertension; M10.9 Gout, unspecified; E66.01 Morbid (severe) obesity due to excess calories; Z68.35 Body mass index [BMI] 35.0-35.9, adult; J45.31 Mild persistent asthma with (acute) exacerbation; G47.33 Obstructive sleep apnea (adult) (pediatric)
CPT/HCPCS: 36415; 70450; 70551; 71045; 80048; 80053; 80061; 80076; 81003; 82962; 83735; 83880; 84484 ×3; 85025 ×2; 85610; 93005; 93306; 93880; 94640 ×2; 96361; 96374; 99285; G0378 ×2; J2930; J7030

== ENCOUNTER 2021-06-11 15:40 | Emergency (ER) | payer OTHER ==
--- OUTSIDE RECORDS SUMMARY | 2021-06-11 15:43 | XMS REPORT | Continuity of Care Document ---
:[address] [facility] t Address [address] [place] [address] Care Team Providers Name Role Phone CENTER, JETHRO Kole [facility] Primary Care Physician Un available Aureliano ANDRADE Attending Clinician AURELIANO Attending Clinician Unavailable Doctor Unassigned, Name Attending Clinician Unavailable Elieser Calderon DO Attending Clinician Abigail Day PA-C Attending Clinician ABIGAIL DAY Attending Clinician Unavailable [facility] Attending Clinician Unavailable Pam VALDERRAMA Attending Clinician AURELIANO Admitting Clinician Unavailable ABIGAIL DAY Admitting Clinician Unavailable Payers Payer Name Policy Type Policy Number Effective Date Expiration Date S ource Problems Condition Condition Condition Status Onset Resolution Last Treating Co mments Source Name Details Category Date Date Treatment Clinician Date No known No known Disease Unive rs active active ity of problems problems [facility] Allergies, Adverse Reactions, Alerts Allergy Allergy Status Severity Reaction(s) Onset Inactive Treating Comm ents Source Name Type Date Date Clinician NO KNOWN Drug Active Univers ALLERGIE Class ity of S [facility] Social History Social Habit Start Date Stop Date Quantity Comments Source Exposure to Unable to assess Univers ity of SARS-CoV-2 [facility] (event) [place] Sex Ass[birth year] At [birth year] Universit y of 00:00:00 00:00:00 [facility] Smoking Status Start Date Stop Date Source Never Smoker [facility] Unknown if ever smoked [facility] [place] [facility] Medications Ordered Filled Start Stop Current Ordering Indication Dosage Frequency Signature Comments Components Source Medication Medication Date Date Medication? Clinician (SIG) Name Name ketorolac Yes [id number] 10mg Take 1 Un silvia 10 mg 9-22 tablet by ity of tablet 00:00: mouth [place] 00 every 8 Medical (eight) Branch hours. ondansetron Yes [id number] 4mg Take 1 Univers 4 mg 9-22 tablet by ity of disintegrat 00:00: mouth [place] ing tablet 00 every 4 Medica l (four) Branch hours as needed for Nausea and Vomiting (N/V). tamsulosin Yes [id number] .4mg Take 1 U nivers 0.4 mg 24 9-22 capsule by ity of hr capsule 00:00: mouth at [facility] as 00 bedtime. Medical Branch traMADoL 50 Yes [id number] 50mg Take 1 Univ ers mg tablet 9-22 tablet by ity o f 00:00: mouth [place] 00 every 6 Medical (six) Branch hours as needed for Pain (scale 4-6). Indication s: acute pain montelukast 2019- Yes montelukas Univers 10 mg 3-24 t 10 mg ity of tablet 21:27: tablet [place] 47 Take 1 Medical tablet Branch every day by oral route. simvastatin 2019- Yes simvastati Univers 20 mg 3-24 n 20 mg ity of tablet 21:27: tablet [place] 47 Take 1 Medical tablet Branch every day by oral route. tamsulosin 2019- Yes tamsulosin U nivers 0.4 mg 24 3-24 0.4 mg ity of hr capsule 21:27: capsule [place] 47 Take 1 Medical capsule Branch every day by oral route. traZODone 2019-0 Yes trazodone Uni vers 50 mg 3-24 50 mg ity of tablet 21:27: tablet [place] 47 Take 1 Medical tablet Branch every day by oral route. rOPINIRole 2019- Yes ropinirole U nivers 1 mg tablet 3-24 1 mg ity of 21:27: tablet [place] 47 Take 1 Medical tablet 3 Branch times a day by oral route. venlafaxine 2019-0 Yes venlafaxin Univers XR 150 mg 3-24 e ER 150 ity of 24 hr 21:27: mg [place] capsule 47 capsule,ex Medica l tended Branch release 24 hr Take 1 capsule every day by oral route. montelukast 2020-0 Yes montelukas Univers 10 mg 3-24 t 10 mg ity of tablet 21:27: tablet [place] 47 Take 1 Medical tablet Branch every day by oral route. simvastatin 2020-0 Yes simvastati Univers 20 mg 3-24 n 20 mg ity of tablet 21:27: tablet [place] 47 Take 1 Medical tablet Branch every day by oral route. tamsulosin 2020-0 Yes tamsulosin U nivers 0.4 mg 24 3-24 0.4 mg ity of hr capsule 21:27: capsule [place] 47 Take 1 Medical capsule Branch every day by oral route. traZODone 2020-0 Yes trazodone Uni vers 50 mg 3-24 50 mg ity of tablet 21:27: tablet [place] 47 Take 1 Medical tablet Branch every day by oral route. rOPINIRole 2020-0 Yes ropinirole U nivers 1 mg tablet 3-24 1 mg ity of 21:27: tablet [place] 47 Take 1 Medical tablet 3 Branch times a day by oral route. venlafaxine 2020-0 Yes venlafaxin Univers XR 150 mg 3-24 e ER 150 ity of 24 hr 21:27: mg [place] capsule 47 capsule,ex Medica l tended Branch release 24 hr Take 1 capsule every day by oral route. montelukast 2020-0 Yes montelukas Univers 10 mg 3-24 t 10 mg ity of tablet 21:27: tablet [place] 47 Take 1 Medical tablet Branch every day by oral route. simvastatin 2020-0 Yes simvastati Univers 20 mg 3-24 n 20 mg ity of tablet 21:27: tablet [place] 47 Take 1 Medical tablet Branch every day by oral route. tamsulosin 2020-0 Yes tamsulosin U nivers 0.4 mg 24 3-24 0.4 mg ity of hr capsule 21:27: capsule [place] 47 Take 1 Medical capsule Branch every day by oral route. traZODone 2020-0 Yes trazodone Uni vers 50 mg 3-24 50 mg ity of tablet 21:27: tablet [place] 47 Take 1 Medical tablet Branch every day by oral route. rOPINIRole 2020-0 Yes ropinirole U nivers 1 mg tablet 3-24 1 mg ity of 21:27: tablet [place] 47 Take 1 Medical tablet 3 Branch times a day by oral route. venlafaxine 2020-0 Yes venlafaxin Univers XR 150 mg 3-24 e ER 150 ity of 24 hr 21:27: mg [place] capsule 47 capsule,ex Medica l tended Branch release 24 hr Take 1 capsule every day by oral route. montelukast 2020-0 Yes montelukas Univers 10 mg 3-24 t 10 mg ity of tablet 21:27: tablet [place] 47 Take 1 Medical tablet Branch every day by oral route. simvastatin 2020-0 Yes simvastati Univers 20 mg 3-24 n 20 mg ity of tablet 21:27: tablet [place] 47 Take 1 Medical tablet Branch every day by oral route. tamsulosin 2019-0 Yes tamsulosin U nivers 0.4 mg 24 3-24 0.4 mg ity of hr capsule 21:27: capsule [place] 47 Take 1 Medical capsule Branch every day by oral route. traZODone 2019-0 Yes trazodone Uni vers 50 mg 3-24 50 mg ity of tablet 21:27: tablet [place] 47 Take 1 Medical tablet Branch every day by oral route. rOPINIRole 2019-0 Yes ropinirole U nivers 1 mg tablet 3-24 1 mg ity of 21:27: tablet [place] 47 Take 1 Medical tablet 3 Branch times a day by oral route. venlafaxine 2020-0 Yes venlafaxin Univers XR 150 mg 3-24 e ER 150 ity of 24 hr 21:27: mg [place] capsule 47 capsule,ex Medica l tended Branch release 24 hr Take 1 capsule every day by oral route. montelukast 2020-0 Yes montelukas Univers 10 mg 3-24 t 10 mg ity of tablet 21:27: tablet [place] 47 Take 1 Medical tablet Branch every day by oral route. simvastatin 2020-0 Yes simvastati Univers 20 mg 3-24 n 20 mg ity of tablet 21:27: tablet [place] 47 Take 1 Medical tablet Branch every day by oral route. tamsulosin 2020-0 Yes tamsulosin U nivers 0.4 mg 24 3-24 0.4 mg ity of hr capsule 21:27: capsule [place] 47 Take 1 Medical capsule Branch every day by oral route. traZODone 2020-0 Yes trazodone Uni vers 50 mg 3-24 50 mg ity of tablet 21:27: tablet [place] 47 Take 1 Medical tablet Branch every day by oral route. rOPINIRole 2020-0 Yes ropinirole U nivers 1 mg tablet 3-24 1 mg ity of 21:27: tablet [place] 47 Take 1 Medical tablet 3 Branch times a day by oral route. venlafaxine 2020-0 Yes venlafaxin Univers XR 150 mg 3-24 e ER 150 ity of 24 hr 21:27: mg [place] capsule 47 capsule,ex Medica l tended Branch release 24 hr Take 1 capsule every day by oral route. montelukast 2020-0 Yes montelukas Univers 10 mg 3-24 t 10 mg ity of tablet 21:27: tablet [place] 47 Take 1 Medical tablet Branch every day by oral route. simvastatin 2019-0 Yes simvastati Univers 20 mg 3-24 n 20 mg ity of tablet 21:27: tablet [place] 47 Take 1 Medical tablet Branch every day by oral route. tamsulosin 2019-0 Yes tamsulosin U nivers 0.4 mg 24 3-24 0.4 mg ity of hr capsule 21:27: capsule Alfonso garcia 47 Take 1 Medical capsule Branch every day by oral route. traZODone 2019-0 Yes trazodone Uni vers 50 mg 3-24 50 mg ity of tablet 21:27: tablet [place] 47 Take 1 Medical tablet Branch every day by oral route. rOPINIRole 2019-0 Yes ropinirole U nivers 1 mg tablet 3-24 1 mg ity of 21:27: tablet [place] 47 Take 1 Medical tablet 3 Branch times a day by oral route. venlafaxine 2019-0 Yes venlafaxin Univers XR 150 mg 3-24 e ER 150 ity of 24 hr 21:27: mg [place] capsule 47 capsule,ex Medica l tended Branch release 24 hr Take 1 capsule every day by oral route. finasteride 2020-0 Yes finasterid Univers 5 mg tablet 3-24 e 5 mg ity of 21:27: tablet [place] 46 Take 1 Medical tablet Branch every day by oral route. hydroCHLORO 2020-0 Yes hydrochlor Univers thiazide 25 3-24 othiazide ity of mg tablet 21:27: 25 mg [place] 46 tablet Medical Take 1 Branch tablet every day by oral route. finasteride 2019-0 Yes finasterid Univers 5 mg tablet 3-24 e 5 mg ity of 21:27: tablet [place] 46 Take 1 Medical tablet Branch every day by oral route. hydroCHLORO 2020-0 Yes hydrochlor Univers thiazide 25 3-24 othiazide ity of mg tablet 21:27: 25 mg [place] 46 tablet Medical Take 1 Branch tablet every day by oral route. finasteride 2020-0 Yes finasterid Univers 5 mg tablet 3-24 e 5 mg ity of 21:27: tablet [place] 46 Take 1 Medical tablet Branch every day by oral route. hydroCHLORO 2020-0 Yes hydrochlor Univers thiazide 25 3-24 othiazide ity of mg tablet 21:27: 25 mg [place] 46 tablet Medical Take 1 Branch tablet every day by oral route. finasteride 2019-0 Yes finasterid Univers 5 mg tablet 3-24 e 5 mg ity of 21:27: tablet [place] 46 Take 1 Medical tablet Branch every day by oral route. hydroCHLORO 2019-0 Yes hydrochlor Univers thiazide 25 3-24 othiazide ity of mg tablet 21:27: 25 mg [place] 46 tablet Medical Take 1 Branch tablet every day by oral route. finasteride 2019-0 Yes finasterid Univers 5 mg tablet 3-24 e 5 mg ity of 21:27: tablet [place] 46 Take 1 Medical tablet Branch every day by oral route. hydroCHLORO 2019-0 Yes hydrochlor Univers thiazide 25 3-24 othiazide ity of mg tablet 21:27: 25 mg [place] 46 tablet Medical Take 1 Branch tablet every day by oral route. finasteride 2019-0 Yes finasterid Univers 5 mg tablet 3-24 e 5 mg ity of 21:27: tablet [place] 46 Take 1 Medical tablet Branch every day by oral route. hydroCHLORO 2019-0 Yes hydrochlor Univers thiazide 25 3-24 othiazide ity of mg tablet 21:27: 25 mg [place] 46 tablet Medical Take 1 Branch tablet every day by oral route. montelukast 2019-0 Yes montelukas Univers 10 mg 3-24 t 10 mg ity of tablet 16:27: tablet [place] 47 Take 1 Medical tablet Branch every day by oral route. simvastatin 2019-0 Yes simvastati Univers 20 mg 3-24 n 20 mg ity of tablet 16:27: tablet [place] 47 Take 1 Medical tablet Branch every day by oral route. tamsulosin 2019-0 Yes tamsulosin U nivers 0.4 mg 24 3-24 0.4 mg ity of hr capsule 16:27: capsule [place] 47 Take 1 Medical capsule Branch every day by oral route. traZODone 2020-0 Yes trazodone Uni vers 50 mg 3-24 50 mg ity of tablet 16:27: tablet [place] 47 Take 1 Medical tablet Branch every day by oral route. rOPINIRole 2020-0 Yes ropinirole U nivers 1 mg tablet 3-24 1 mg ity of 16:27: tablet [place] 47 Take 1 Medical tablet 3 Branch times a day by oral route. venlafaxine 2020-0 Yes venlafaxin Univers XR 150 mg 3-24 e ER 150 ity of 24 hr 16:27: mg [place] capsule 47 capsule,ex Medica l tended Branch release 24 hr Take 1 capsule every day by oral route. montelukast 2019-0 Yes montelukas Univers 10 mg 3-24 t 10 mg ity of tablet 16:27: tablet [place] 47 Take 1 Medical tablet Branch every day by oral route. simvastatin 2019-0 Yes simvastati Univers 20 mg 3-24 n 20 mg ity of tablet 16:27: tablet [place] 47 Take 1 Medical tablet Branch every day by oral route. tamsulosin 2019-0 Yes tamsulosin U nivers 0.4 mg 24 3-24 0.4 mg ity of hr capsule 16:27: capsule [facility] 47 Take 1 Medical capsule Branch every day by oral route. traZODone 2019-0 Yes trazodone Uni vers 50 mg 3-24 50 mg ity of tablet 16:27: tablet [place] 47 Take 1 Medical tablet Branch every day by oral route. rOPINIRole 2019-0 Yes ropinirole U nivers 1 mg tablet 3-24 1 mg ity of 16:27: tablet [place] 47 Take 1 Medical tablet 3 Branch times a day by oral route. venlafaxine 2020-0 Yes venlafaxin Univers XR 150 mg 3-24 e ER 150 ity of 24 hr 16:27: mg [place] capsule 47 capsule,ex Medica l tended Branch release 24 hr Take 1 capsule every day by oral route. hydroCHLORO 2020-0 Yes hydrochlor Univers thiazide 25 3-24 othiazide ity of mg tablet 16:27: 25 mg [place] 46 tablet Medical Take 1 Branch tablet every day by oral route. finasteride 2019-0 Yes finasterid Univers 5 mg tablet 3-24 e 5 mg ity of 16:27: tablet [place] 46 Take 1 Medical tablet Branch every day by oral route. hydroCHLORO 2019-0 Yes hydrochlor Univers thiazide 25 3-24 othiazide ity of mg tablet 16:27: 25 mg [place] 46 tablet Medical Take 1 Branch tablet every day by oral route. finasteride 2019-0 Yes finasterid Univers 5 mg tablet 3-24 e 5 mg ity of 16:27: tablet [place] 46 Take 1 Medical tablet Branch every day by oral route. allopurinol allopurinol No 1 Q1D allopurino [place] 100 mg 100 mg l 100 mg da tablet Take tablet Take tablet Medical 1 tablet 1 tablet Take 1 Group every day every day tablet by oral by oral every day route. route. by oral route. finasteride finasteride No 1 Q1D finasterid [place] 5 mg tablet 5 mg tablet e 5 mg da Take 1 Take 1 tablet Medical tablet tablet Take 1 Group every day every day tablet by oral by oral every day route. route. by oral route. hydrochloro hydrochloro No 1 Q1D hydrochlor [place] thiazide 25 thiazide 25 othiazide da mg tablet mg tablet 25 mg Medi kaiden Take 1 Take 1 tablet Group tablet tablet Take 1 every day every day tablet by oral by oral every day route. route. by oral route. Kenalog 40 Kenalog 40 No 2mg Kenalog 40 [place] mg/mL mg/mL mg/mL da suspension suspension suspension Medical for for for Group injection injection injection Take 2 mg Take 2 mg Take 2 mg by by by injection injection injection route. route. route. montelukast montelukast No 1 Q1D montelukas [place] 10 mg 10 mg t 10 mg da tablet Take tablet Take tablet Medical 1 tablet 1 tablet Take 1 Group every day every day tablet by oral by oral every day route. route. by oral route. prazosin 2 prazosin 2 No 1capsul TID prazosin 2 [place] mg capsule mg capsule e(s) mg capsule da Take 1 Take 1 Take 1 Medical capsule 3 capsule 3 capsule 3 Group times a day times a day times a by oral by oral day by route. route. oral route. ropinirole ropinirole No 1 TID ropinirole [place] 1 mg tablet 1 mg tablet 1 mg d a Take 1 Take 1 tablet Medical tablet 3 tablet 3 Take 1 Group times a day times a day tablet 3 by oral by oral times a route. route. day by oral route. simvastatin simvastatin No 1 Q1D simvastati [place] 20 mg 20 mg n 20 mg da tablet Take tablet Take tablet Medical 1 tablet 1 tablet Take 1 Group every day every day tablet by oral by oral every day route. route. by oral route. tamsulosin tamsulosin No 1capsul Q1D tamsulosin [place] 0.4 mg 0.4 mg e(s) 0.4 mg da capsule capsule capsule Medica l Take 1 Take 1 Take 1 Group capsule capsule capsule every day every day every day by oral by oral by oral route. route. route. trazodone trazodone No 1 Q1D trazodone [place] 50 mg 50 mg 50 mg da tablet Take tablet Take tablet Medical 1 tablet 1 tablet Take 1 Group every day every day tablet by oral by oral every day route. route. by oral route. venlafaxine venlafaxine No 1capsul Q1D venlafaxin [place] ER 150 mg ER 150 mg e(s) e ER 150 d a capsule,ext capsule,ext mg M edical ended ended capsule,ex Group release 24 release 24 tended hr Take 1 hr Take 1 release 24 capsule capsule hr Take 1 every day every day capsule by oral by oral every day route. route. by oral route. Vital Signs Vital Name Observation Time Observation Value Comments Source Systolic blood 2021-02-05 03:30:00 155 mm[Hg] [facility] Diastolic blood 2021-02-05 03:30:00 93 mm[Hg] [facility] Heart rate 2021-02-05 03:30:00 62 /min [facility] Respiratory rate 2021-02-05 03:30:00 10 /min [facility] Oxygen saturation in 2021-02-05 03:30:00 97 /min [facility] Arterial blood by [facility] Pulse oximetry [place] Body temperature 2021-02-05 02:28:15 37 Amee [facility] Body height 2021-02-05 02:01:00 175.3 cm [facility] Body weight 2021-02-05 02:01:00 94.348 kg [facility] BMI 2021-02-05 02:01:00 30.72 kg/m2 Universi ty [facility] Systolic blood 2019-08-07 21:23:00 150 mm[Hg] Univer sity of pressure [facility] Diastolic blood 2019-08-07 21:23:00 80 mm[Hg] Unive rsity of [facility] Heart rate 2019-08-07 21:23:00 74 /[facility] 2019-08-07 21:23:00 36.5 [facility]mee [facility] Body height 2019-08-07 21:23:00 175.3 cm Universi [facility] Body weight 2019-08-07 21:23:00 99.791 kg [facility] BMI 2019-08-07 21:23:00 32.49 kg/m2 [facility] Oxygen saturation in 2019-08-07 21:23:00 97 /min [facility] blood by [facility] Pulse oximetry Branch BP Diastolic 2018-07-06 00:00:00 89 mm[Hg] [facility] Height 2018-07-06 00:00:00 69 [in_i] [facility] BMI (Body Mass 2018-07-06 00:00:00 35.4 kg/m2 [facility] Medical Index) Group BP Systolic 2018-07-06 00:00:00 154 mm[Hg] [facility] Body Weight 2018-07-06 00:00:00 240 [lb_av] [facility] BP Diastolic 2018-06-16 00:00:00 79 mm[Hg] [facility] Height 2018-06-16 00:00:00 69 [in_i] [facility] BMI (Body Mass 2018-06-16 00:00:00 35.4 kg/m2 [facility] 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 METABOLIC PANEL 2021-02-05 02:26:00 Cem Bedoya [facility] ([id number]) [facility] CBC WITH DIFF 2021-02-05 02:26:00 Aureliano Cem [facility] URINALYSIS 2021-02-05 02:26:00 Cem Bedoya [facility] NOTICE OF PRIVACY 2021-02-05 01:54:47 Doctor Unassigned, No Univ [facility] Name [facility] CONSENT/REFUSAL FOR 2021-02-05 01:54:05 Doctor Unassigned, No [facility] DIAGNOSIS AND [facility] TREATMENT XR CHEST 2 VW 2019-08-07 22:19:22 Karina Day [facility] unlisted imaging order 2018-06-16 00:00:00 [facility] Carpal T[facility] Plan of Care Planned Activity Planned Date Details Comments Source Instructions [facility] Encounters Start End Encounter Admission Attending Care Care Encounter Source Date/Time Date/Time Type Type Clinicians Facility Department ID 2021-02-04 2021-02-04 [facility] [id number] Univers 21:04:00 22:52:00 Cem Kc [id number] i ty of [place] 4.2.7.2.686 [facility] [id number] [facility] 084 Branch 2021-02-04 2021-02-04 Emergency [facility] [id number] Univers 21:04:00 22:52:00 CEM vo [facility] 2021-02-04 2021-02-04 Orders Doctor CASTRO [id number] Univers 00:00:00 00:00:00 Only Unassigned, CARMEN [id number] ity of [place] [id number] [place] [address] [id number] [facility] 009 Branch 2020-07-21 2020-07-21 Patient Kvng TNGONZALEZ [id number] Univers 00:00:00 00:00:00 Outreach Nguyễn RUIZ [id number] i ty of [facility] [id number] [place] [facility] [phone] Al dical 388 Branch 2019-08-09 2019-08-09 Telephone Karina Day [facility] [id number] Univers 00:00:00 00:00:00 [facility] [id number] it [place] [id number] [place] [facility] [phone] [facility] Primary & 370 Branch Specialty Care 2019-08-07 2019-08-07 Outpatient R KARINA DAY [facility] [id number] Univers 17:02:09 23:59:00 ity of [facility] 2019-08-07 2019-08-07 Hospital Karina Day [facility] [id number] Univers 17:00:00 23:59:00 Encounter Abigail Kc [id number] ity [facility] [id number] [place] [id number] [facility] 807 Branch 2019-08-07 2019-08-07 Outpatient R KARINA DAY [facility] [id number] Univers 17:00:00 17:00:00 [id number] ity of [facility] 2019-08-07 2019-08-07 Office Pob1, Acute Care Clinic [facility] [id number] Univers 16:16:24 16:50:13 Visit Irais Orozco [facility] [id number] ity [facility] [id number] Wm as [facility] [id number] Al dical nal 044 Branch Office [address] One 2018-07-06 2018-07-06 Ysabel [facility] [place] - [id number] [place] 00:00:00 00:00:00 MD Cristofer: [address] - [facility] 201, [facility] [address] , Ph. 2018-06-16 2018-06-16 Ysabel [facility] [place] - [id number] [place] 00:00:00 00:00:00 MD Cristofer: [address] - [address], [place], [place] [address] , Ph. Results Test Description Test Time Test Comments Results Result Comments Source COMP. METABOLIC PANEL (49259) 2021-02-05 03:19:47 Test Item Value Reference Range Interpretation Comme nts NA (test code = 9628911522) 137 mmol/L 135-145 K (test code = 3906374465) 3.9 mmol/L 3.5-5.0 CL (test code = 1788379450) 106 mmol/L 98-108 CO2 TOTAL (test code = 9110937612) 25 mmol/L 23-31 AGAP (test code = 4822534912) 2-16 BUN (test code = 7539576355) 26 mg/dL 7-23 H GLUCOSE (test code = 9740006878) 115 mg/dL 70-110 H CREATININE (test code = 0.93 mg/dL 0.60-1.25 2897054701) TOTAL BILI (test code = 0.6 mg/dL 0.1-1.6 7794629663) CALCIUM (test code = 1824032752) 9.2 mg/dL 8.6-10.6 T PROTEIN (test code = 5537570382) 6.6 g/dL 6.3-8.2 ALBUMIN (test code = 5606226427) 4.1 g/dL 3.5-5.0 ALK PHOS (test code = 5682499302) 45 U/L 34-122 ALTv (test code = 1742-6) 14 U/L 5-50 AST(SGOT) (test code = 0873578176) 19 U/L 13-40 eGFR (test code = 9105140923) mL/min/1.73m2 BERNARD (test code = BERNARD) Association of Glomerular Filtration Rate (GFR) and Staging of Kidney Disease* + +-------- + ------+| GFR (mL/min/1.73 m2) ?| With Kidney Damage ?| ?Without Kidney Damage+ +-- + +| ?>90 ?| ?Stage one ?| ? Normal ?+ +------- + -------+| ?60-89 ?| ?Stage two ?| ? Decreased GFR ? + +-------- + ------+| ?30-59 ?| ?Stage three ?| ? Stage three ? + +-------- + ------+| ?15-29 ?| ?Stage four ? | ? Stage four ?+ +------- + -------+| ?<15 (or dialysis) ? ?| ?Stage five ? | ? Stage five ?+ +------- + -------+ *Each stage assumes the associated GFR level has been in effect for at least three months. ?Stages 1 to 5, with or without kidney disease, indicate chronic kidney disease. Notes: Determination of stages one and two (with eGFR >59mL/min/1.73 m2) requires estimation of kidney damage for at least three months as defined by structural or functional abnormalities of the kidney, manifested by either:Pathological abnormalities or Markers of kidney damage (including abnormalities in the composition of the blood or urine or abnormalities in imaging tests). Lab Interpretation (test code = Abnormal 85773-3) [facility] WITH [id number] 02:45:11 Test Item Value Reference Range Interpretation Comments WBC (test code = See_Comment [Automated 7590-2) message] The sy stem which generated this result transmitted reference range : 4.20 - 10.70 10*3/?L. The reference range was not used to interpret this result as normal/abnormal . RBC (test code = See_Comment L [Automated 929-8) message] The sy stem which generated this result transmitted reference range : 4.26 - 5.52 10*6/?L. The reference range was not used to interpret this result as normal/abnormal . HGB (test code = 12.6 g/dL 12.2-16.4 718-7) HCT (test code = 37.7 % 38.4-49.3 L 4544-3) MCV (test code = 91.7 fL 81.7-95.6 787-2) MCH (test code = 30.7 pg 26.1-32.7 785-6) MCHC (test code = 33.4 g/dL 31.2-35.0 786-4) RDW-SD (test code = 45.0 fL 38.5-51.6 44034-4) RDW-CV (test code = 13.2 % 12.1-15.4 788-0) PLT (test code = See_Comment [Automated 777-3) message] The sy stem which generated this result transmitted reference range : 150 - 328 10*3/ ?L. The reference r serg was not used to interpret this result as normal/abnormal . MPV (test code = 11.7 fL 9.8-13.0 63086-4) NRBC/100 WBC (test See_Comment [Automat ed code = [id number]) message] The system which generated this result transmitted reference range : 0.0 - 10.0 /100 WBCs. The refer ence range was not u sed to interpret th is result as normal/abnormal . NRBC x10^3 (test code <0.01 See_Comment [Auto mated = [id number]) message] The s ystem which generated this result transmitted reference range : 10*3/?L. The reference range was not used to interpret this result as normal/abnormal . GRAN MAT (NEUT) % 66.9 % (test code = 770-8) IMM GRAN % (test code 0.40 % = [id number]) LYMPH % (test code = 22.6 % 736-9) MONO % (test code = 8.0 % 5905-5) EOS % (test code = 1.5 % 713-8) BASO % (test code = 0.6 % 706-2) GRAN MAT x10^3(ANC) 6.08 10*3/uL 1.99-6.95 (test code = 8874792604) IMM GRAN x10^3 (test 0.04 10*3/uL 0.00-0.06 code = 4336454630) LYMPH x10^3 (test code 2.05 10*3/uL 1.09-3.23 = 731-0) MONO x10^3 (test code 0.73 10*3/uL 0.36-1.02 = 742-7) EOS x10^3 (test code = 0.14 10*3/uL 0.06-0.53 711-2) BASO x10^3 (test code 0.05 10*3/uL 0.01-0.09 = 704-7) Lab Interpretation Abnormal (test code = 93085-5) [facility] [id number] 23:28:34 No acute cardiopulmonary abnormality Preliminary Report Dictated by Resident: Carmelo Brown MD., have reviewed this study and agree with the abovereport.XR CHEST 2 VW HISTORY: 68 years-old; Male; sob, chest tightness, fever, hx of copd andpneumonia COMPARISON: Chest radiograph 06/11/2015 FINDINGS: The lungs are clear with no focal consolidation. There is no pleuraleffusion or pneumothorax. The cardiomediastinal silhouette is normal. No acute osseous abnormality is identified. [facility], Radiant Results Inft User - 08/07/2019 6:29 PM CDTXR CHEST 2 VWHISTORY: 68 years-old; Male; sob, chest tightness, fever, hx of copd andpneumonia COMPARISON: Chest radiograph 06/11/2015 FINDINGS: The lungs are clear with no focal consolidation. There is no pleuraleffusion or pneumothorax.The cardiomediastinal silhouette is normal.No acute osseous abnormality is identified.IMPRESSIONNo acute cardiopulmonary abnormalityPreliminary Report Dictated by Resident: Carmelo Alamo MD., have reviewed this study and agree with the abovereport.[facility]"
[2021-06-11 16:34] LABS: Absolute Lymphocytes (CBC) 0.9 K/uL (0.7-4.9); Hematocrit 40.3 % (39.6-49.0); Lymphocytes % 8.2 % (15.3-44.8); MPV 10.2 fL (7.6-11.3); RBC Red Blood Cell Count 4.41 M/uL (4.33-5.43)
--- NOTE | 2021-06-11 16:49 | RAD REPORT ---
EXAM DESCRIPTION: CT - Head C Spine Lawrence Leonard - 06/11/2021 4:25 pm CLINICAL HISTORY: Head and neck injury with chest and abdominal pain status post fall. Head and neck pain . TECHNIQUE: Computed axial tomography of the head and cervical spine was obtained Computed axial tomography of the chest, abdomen and pelvis was obtained. 100 cc Isovue-300 was given intravenously coronal and sagittal reconstruction was performed. All CT scans are performed using dose optimization technique as appropriate and may include automated exposure control or mA/KV adjustment according to patient size. COMPARISON: Head CT 2018 FINDINGS: An intracranial bleed is not seen. The ventricles are normal in caliber. An extra-axial fl uid collection is not noted. Fluid within the sinuses is not seen A cervical fracture is not seen. No dislocation is seen. A mediastinal hematoma is not noted. A pleural effusion is not present. A lung contusion is not seen. The liver, spleen, pancreas, adrenals, kidneys and bladder do not demonstrate a traumatic injury 2.6 centimeter low-density mass extends off of the left kidney. The wall is mildly thickened. IMPRESSION: No acute intracranial abnormality is seen A cervical fracture is not visualized. If the patient continues have symptoms to suggest intracranial /spinal cord pathology then MRI would be recommended. No traumatic injury involving the chest, abdomen or pelvis is seen. 2.6 centimeter low-density left renal mass with a mildly thickened wall probably benign. Follow-up ul alvaro in 6 months recommended for re-evaluation
--- NOTE | 2021-06-11 17:27 | RAD REPORT ---
EXAM DESCRIPTION: RAD - Femur Right - 06/11/2021 5:07 pm CLINICAL HISTORY: Leg pain FINDINGS: No fracture is seen.
--- NOTE | 2021-06-11 17:28 | RAD REPORT ---
EXAM DESCRIPTION: RAD - Femur Left - 06/11/2021 5:07 pm CLINICAL HISTORY: Left leg pain FINDINGS: No fracture seen
--- NOTE | 2021-06-11 17:29 | RAD REPORT ---
EXAM DESCRIPTION: RAD - Tib Fib Right - 06/11/2021 5:07 pm CLINICAL HISTORY: Right leg pain FINDINGS: No fracture is seen
--- NOTE | 2021-06-11 17:29 | RAD REPORT ---
EXAM DESCRIPTION: Mike Rueda Left06/11/2021 5:07 pm CLINICAL HISTORY: Left leg pain FINDINGS: No fracture is seen
--- NOTE | 2021-06-11 17:35 | EDPHYS ---
Physician Documentation [facility] Name: Sammy Baez Age: 70 yrs Sex: Male : 1950 Arrival Date: 06/11/2021 Time: 15:42 Bed 7 Private MD: ED Physician Codey Purcell HPI: 06/11 12:00 This 70 yrs old Male presents to ER via Wheelchair with complaints of Fall Injury, jmm sleepy. 12:00 Details of fall: The patient fell from a height, from a ladder, approximately 9 feet. jmm Onset: The symptoms/episode began/occurred acutely, at 12:00. The patient has not experienced similar symptoms in the past. This is a 70-year-old male with history of arthritis, asthma, BPH, gout, hypertension, sleep apnea the presents emerge department with complaints of mainly left leg pain which occurred after a fall from a ladder. Patient states that the ladder slipped. Patient is unsure whether he hit his head. Patient states he is not taking any type of anticoagulants. Patient denies headache, neck pain, chest pain, abdominal pain. Abrasion noted to the right lower leg.. Historical: - Allergies: 15:53 No Known Allergies; ld1 - PMHx: 15:53 Arthritis; Asthma; BPH; GERD; Gout; Hypertension; Sleep Apnea; Hyperlipidemia; restless ld1 legs; - PSHx: 15:53 None; ld1 - Immunization history:: unknown. - Social history:: Smoking status: unknown. ROS: 12:00 Constitutional: Negative for fever, chills, and weight loss, Cardiovascular: Negative jmm for chest pain, palpitations, and edema, Respiratory: Negative for shortness of breath, cough, wheezing, and pleuritic chest pain. 12:00 MS/extremity: Positive for injury or acute deformity, pain. 12:00 Skin: Positive for abrasion(s). 12:00 All other systems are negative. Exam: 12:00 Constitutional: This is a well developed, well nourished patient who is awake, alert, jmm and in no acute distress. Head/Face: atraumatic. Eyes: EOMI, no conjunctival erythema appreciated ENT: Moist Mucus Membranes Neck: Trachea midline, Supple Chest/axilla: Normal chest wall appearance and motion. Cardiovascular: Regular rate and rhythm. No edema appreciated Respiratory: Normal respirations, no respiratory distress appreciated Abdomen/GI: Non distended, soft Back: Normal ROM 12:00 Musculoskeletal/extremity: Mildly painful passive range of motion noted to the left hip. Nonpainful range of motion noted to the right hip. Full range of motion appreciated to the right and left knees. Neurovascular intact. Compartments are soft. 12:00 Skin: Abrasion noted to the right lower leg. No active bleeding appreciated. 12:00 Neuro: Orientation: is normal, Mentation: is normal, Memory: is normal. 12:00 Psych: Behavior/mood is pleasant, cooperative. Vital Signs: 15:53 BP 136 / 71; Pulse 81; Resp 18; Temp 99.7(O); Pulse Ox 98% on R/A; Weight 90.72 kg; ld1 Height 5 ft. 9 in. (175.26 cm); Pain 6/10; 16:00 BP 138 / 66; Pulse 79; Resp 13 S; Pulse Ox 99% on R/A; jg9 17:30 BP 143 / 79; Pulse 75; Resp 24 S; Pulse Ox 97% on R/A; jg9 15:53 Body Mass Index 29.53 (90.72 kg, 175.26 cm) ld1 MDM: 16:08 Patient medically screened. darvin 17:32 Data reviewed: vital signs, nurses notes. Counseling: I had a detailed discussion with darvin the patient and/or guardian regarding: the historical points, exam findings, and any diagnostic results supporting the discharge/admit diagnosis, radiology results, the need for outpatient follow up, to return to the emergency department if symptoms worsen or persist or if there are any questions or concerns that arise at home. ED course: Imaging studies are negative. Patient is able to ambulate. Advised follow-up with PCP and otherwise given strict return precautions. Patient understood and agrees plan of care.. 06/11 16:10 Order name: CBC with Diff; Complete Time: 16:38 [facility] 06/11 16:10 Order name: BMP; Complete Time: 16:52 [facility] 06/11 16:09 Order name: CT Traumagram (Head C Spine CAP W Con); Complete Time: 16:52 [facility] 06/11 16:09 Order name: Femur Left XRAY; Complete Time: 17:31 [facility] 06/11 16:09 Order name: Femur Right XRAY; Complete Time: 17:31 [facility] 06/11 16:09 Order name: Tib Fib Right XRAY; Complete Time: 17:31 [facility] 06/11 16:09 Order name: Tib Fib Left XRAY; Complete Time: 17:31 [facility] 06/11 16:10 Order name: Saline Lock; Complete Time: 16:11 [facility] 06/11 16:10 Order name: Misc. Order: i-stat creat; Complete Time: 16:59 [facility] Administered Medications: No medications were administered Disposition: 18:37 Co-signature as Attending Physician, Codey Purcell MD I agree with the assessment and kdr plan of care. Disposition Summary: 06/11/21 17:34 Discharge Ordered Location: Home [facility] Condition: Stable [facility] Diagnosis - Abrasion of the right lower leg [facility] - Contusion of the left leg [facility] Followup: [facility] - With: Private Physician - When: 2 - 3 days - Reason: Recheck today's complaints, Continuance of care, Re-evaluation by your physician Discharge Instructions: - Discharge Summary Sheet [facility] Forms: - Medication Reconciliation Form [facility] - Thank You Letter [facility] - Antibiotic Education [facility] - Prescription Opioid Use [facility] Prescriptions: - orphenadrine citrate 100 mg Oral Tablet Sustained Release - take 1 tablet by ORAL route 2 times per day As needed; 20 tablet; Refills: 0, [facility] Product Selection Permitted Signatures: Dispatcher [employer] Codey Ledbetter MD MD kdr Mickail, Joel, PA PA [facility] Nicole Meadows, RN RN ld1 Kaykay Hines RN RN jg9
--- NOTE | 2021-06-11 17:35 | ER ---
Nurse's Notes [facility] Name: Sammy Baez Age: 70 yrs Sex: Male : 1950 Arrival Date: 06/11/2021 Time: 15:42 Bed 7 Private MD: Diagnosis: Abrasion of the right lower leg;Contusion of the left leg Presentation: 06/11 15:53 Chief complaint: Patient states: Pt fell 9 feet off of ladder around 1200 today - Pt ld1 does not think he hit his head but he does not know. Denies LOC. Coronavirus screen: At this time, the client does not indicate any symptoms associated with coronavirus-19. Ebola Screen: No symptoms or risks identified at this time. Initial Sepsis Screen: Does the patient meet any 2 criteria? No. Patient's initial sepsis screen is negative. Does the patient have a suspected source of infection? No. Patient's initial sepsis screen is negative. Risk Assessment: Do you want to hurt yourself or someone else? Patient reports no desire to harm self or others. Onset of symptoms was June 11, 2021. 15:53 Method Of Arrival: Wheelchair ld1 15:53 Acuity: ANNA MARIE 3 ld1 Triage Assessment: 16:15 General: Appears in no apparent distress. Behavior is calm. Pain: Complains of pain in jg9 left leglet knee. Historical: - Allergies: 15:53 No Known Allergies; ld1 - PMHx: 15:53 Arthritis; Asthma; BPH; GERD; Gout; Hypertension; Sleep Apnea; Hyperlipidemia; restless ld1 legs; - PSHx: 15:53 None; ld1 - Immunization history:: unknown. - Social history:: Smoking status: unknown. Screenin:28 Abuse screen: Denies threats or abuse. Denies injuries from another. Nutritional jg9 screening: No deficits noted. Tuberculosis screening: No symptoms or risk factors identified. Fall Risk None identified. Assessment: 16:15 Pain: Complains of pain in left leg-left knee Pain currently is 7 out of 10 on a pain jg9 scale. Injury Description: Abrasion sustained to right leg-r hanley. Vital Signs: 15:53 BP 136 / 71; Pulse 81; Resp 18; Temp 99.7(O); Pulse Ox 98% on R/A; Weight 90.72 kg; ld1 Height 5 ft. 9 in. (175.26 cm); Pain 6/10; 16:00 BP 138 / 66; Pulse 79; Resp 13 S; Pulse Ox 99% on R/A; jg9 17:30 BP 143 / 79; Pulse 75; Resp 24 S; Pulse Ox 97% on R/A; jg9 15:53 Body Mass Index 29.53 (90.72 kg, 175.26 cm) ld1 ED Course: 15:30 Patient has correct armband on for positive identification. Bed in low position. Call j9 light in reach. Side rails up X 1. 15:42 Patient arrived in ED. am2 15:56 Triage completed. ld1 15:58 Saw Barber, RN is Primary Nurse. bp 16:00 Zechariah Burch PA is PHCP. [facility] 16:00 Codey Purcell MD is Attending Physician. [facility] 16:05 Inserted saline lock: 18 gauge in right antecubital area, using aseptic technique. tp1 Blood collected. 16:25 CT Traumagram (Head C Spine CAP W Con) In Process Unspecified. EDMS 17:07 Femur Left XRAY In Process Unspecified. EDMS 17:07 Femur Right XRAY In Process Unspecified. EDMS 17:07 Tib Fib Right XRAY In Process Unspecified. EDMS 17:07 Tib Fib Left XRAY In Process Unspecified. EDMS 17:30 No apparent distress. Resting quietly. patient ready to go home. Pt visited by . jg9 18:05 No provider procedures requiring assistance completed. jg9 18:05 Arm band placed on left wrist. jg9 18:06 IV discontinued. jg9 Administered Medications: No medications were administered Outcome: 17:34 Discharge ordered by . [facility] 18:05 Discharged to home via wheelchair. jg9 18:05 Condition: stable 18:05 Discharge instructions given to patient, Instructed on discharge instructions, follow up and referral plans. Demonstrated understanding of instructions, follow-up care, Prescriptions given X 1. 18:08 Patient left the ED. jg9 Signatures: Dispatcher [employer] EDNC Zechariah Burch PA PA [facility] Liv Porter am2 Saw Barber RN RN bp Nicole Meadows RN RN ld1 [place]deras tp1 Kaykay Hines, RN RN jg9
[2021-06-11 18:38] VITALS: TEMP 99.7
[2021-06-11 18:41] VITALS: BP 143/79; O2SAT 97
== END 2021-06-11 18:08 | disposition home or self-care (01) ==
LOC: ER 15:40
DX: S80.811A Abrasion, right lower leg, initial encounter (principal); W11.XXXA Fall on and from ladder, initial encounter; I10 Essential (primary) hypertension
CPT/HCPCS: 85025; 80048; 36415; 82565; 70450; 72125; 71260; 74177; 73552 ×2; 73590 ×2; 99284; Q9967